=== PATIENT | male | born 1965 | race Hispanic/Latino ===

== ENCOUNTER 2023-11-24 13:52 | Outpatient (RCR) | payer OTHER | END 2023-12-14 | LOC: OT 13:52 | PROVIDERS: ATTEND Orthopaedic Surgery Hand Surgery | DX: S52.571D Other intraarticular fracture of lower end of right radius, subsequent encounter for closed fracture with routine healing (principal); S63.004D Unspecified dislocation of right wrist and hand, subsequent encounter ==